=== PATIENT | male | born 1985 | race Caucasian/White ===

== ENCOUNTER 2017-01-21 06:37 | Emergency (ER) | payer OTHER ==
[~2017-01-21] VITALS: Ht 185.4 cm; Wt 108.9 kg
[2017-01-21] MEDS ORDERED: ZOFRAN ODT4 MG DISSOLVE (09:18)
[2017-01-21] MEDS ORDERED: BUTALB-APAP-CA1 EACH PO (09:18)
[2017-01-21 10:06] VITALS: BP 106/58
== END 2017-01-21 10:09 | disposition home or self-care (01) ==
LOC: ER 06:37
DX: G43.901 Migraine, unspecified, not intractable, with status migrainosus (principal); Z77.22 Contact with and (suspected) exposure to environmental tobacco smoke (acute) (chronic)